=== PATIENT | female | born 1950 | race Caucasian/White ===

== ENCOUNTER 2018-01-02 00:43 | Observation (INO) | payer MEDICARE, OTHER ==
[2018-01-02] VITALS (13 sets, daily range): BP systolic 114–146; BP diastolic 62–87
[~2018-01-02] VITALS: Ht 160 cm; Wt 71.2 kg
[~2018-01-02 00:43] MED LIST: ACET500T68 PO; ACYC-50 PO; ASCO-182 PO; BIOT250012 PO; CALC-635 PO; CRAN500C11 PO; CYCL10TA29 PO; DIAZ-308 PO; ESTR42.53 VA; ESTRATEST PO; GLUC-125 PO; HYDR200T77 PO; LEVO75TA73 PO; LOSA-51 PO; NAPR220C11 PO; NAPR220C12 PO; PRED-1 PO; PREMARIN PO; PROP10TA58 PO; PYRI100T57 PO; VITA-200 PO
[2018-01-02] MEDS ORDERED: THROMBIN (BOVINE) 20,000 UNIT VIAL ONE (06:25)
[2018-01-02] MEDS ORDERED: ROCURONIUM BROM 10 MG/ML 10 ML ONE (07:37)
[2018-01-02] MEDS ORDERED: ONDANSETRON 4 MG/2 ML VIAL ONE (07:37)
[2018-01-02] MEDS ORDERED: LIDOCAINE MPF 1% 5 ML VIAL ONE (07:37)
[2018-01-02] MEDS ORDERED: DEXAMETHASONE SOD 4 MG/ML VIAL ONE (07:37)
[2018-01-02] MEDS ORDERED: SUGAMMADEX SOD 200 MG/2 ML SDV ONE (07:37)
[2018-01-02] MEDS ORDERED: PROPOFOL EMUL(*) 10MG/ML 20 ML 20 ML ONE (07:37)
[2018-01-02] MEDS ORDERED: fentaNYL CITR 100 MCG/2 ML AMP ONE ×2 (07:38→13:40)
[2018-01-02] MEDS ORDERED: HYDROmorphone HCL 2 MG/ML SDV ONE ×2 (07:39→13:12)
[2018-01-02] MEDS ORDERED: KETAMINE HCL 500 MG/10 ML VIAL ONE (07:40)
[2018-01-02] MEDS ORDERED: MIDAZOLAM 2 MG/2 ML VIAL IVP PRN (09:00)
[2018-01-02] MEDS ORDERED: PREGABALIN 150 MG CAPSULE PO ONE (09:00)
[2018-01-02] MEDS ORDERED: LIDOCAINE/SOD BICARB 8.4% SYR ID ONE (09:00)
[2018-01-02] MEDS ORDERED: ACETAMINOPHEN 500 MG TAB PO ONE (09:00)
[2018-01-02] MEDS ORDERED: ceFAZolin(*) 1 GM VIAL 1 GM in NS(*) 0.9% 100 ML ADDVANT BAG 100 ML IVPB ONE (09:00)
[2018-01-02] MEDS ORDERED: NORMOSOL R SOLN(*) 1000 ML BAG 1,000 ML IV PRN (09:00)
[2018-01-02] MEDS ORDERED: FAMOTIDINE 20 MG TAB PO ONE (09:00)
[2018-01-02] MEDS ORDERED: NS 0.9% IRRIGATION 1000ML PLCT IR ONE (12:14)
--- NOTE | 2018-01-02 13:13 | OPERATIVE REPORT 1 ---
EVENT DATE: January 02, 2018 SURGEON: Jason Watson MD ANESTHESIOLOGIST: Dani Iraheta MD ANESTHESIA: General endotracheal. LOOSE HAND PACKER: Rajendra Sebastian PA-C PREOPERATIVE DIAGNOSIS Left lumbar fifth vertebra radiculopathy and neurogenic claudication. POSTOPERATIVE DIAGNOSIS Left lumbar fifth vertebra radiculopathy and neurogenic claudication. PROCEDURE PERFORMED Lumbar fourth vertebra-lumbar fifth vertebra (L4-L5) laminectomy with lumbar fourth vertebra-lumbar fifth vertebra (L4-L5) posterior lateral instrumented fusion. IV FLUIDS 1400 mL. ESTIMATED BLOOD LOSS 120 mL. IMPLANTS USED 1. 6.5 mm x 45 mm pedicle screws from [employer] x4. 2. 40 mm connecting rods from [employer] x2. 3. Locking caps from [employer] x4. SPECIMENS None. DRAINS None. COMPLICATIONS None. DISPOSITION Post-Anesthesia Care Unit. INDICATIONS Ms. Monzon is a 67-year-old female who presented many months ago with a complaint of radiating left lower extremity pain, numbness and tingling down the posterior buttock, posterior lateral thigh and lateral aspect of the calf into the foot. She was found to have significant degenerative disk disease and degenerative spondylolisthesis at L4-L5, where she also had severe spinal stenosis and asymmetric disk height loss, left greater than right. Her physical examination was significant for normal strength and sensation throughout the lower extremities. Secondary to ongoing symptoms and failure to improve with nonsurgical care, Ms. Monzon was ultimately offered and elected to undergo L4-L5 laminectomy with an L4-L5 posterior lateral instrumented fusion to address the spondylolisthesis. Prior to surgery, I explained in detail to the patient the possible risks of surgery. These risks include bleeding, infection, damage to surrounding structures, nerve root injury, persistent and/or worsening pain, spinal fluid leak, meningitis, need for further surgery, deaf, blindness, sexual dysfunction , autonomic nervous system dysfunction and other unforeseen medical and surgical complications. An understanding that in general spinal surgery is more predicted at improving extremity discomfort than axial spine pain was stressed. DESCRIPTION OF PROCEDURE On the date of surgery, the patient was met in the preoperative hold area and all questions were answered. The operative site was identified by myself and marked. The patient was brought in good condition to the operating room and after succumbing to anesthesia was placed in the prone position on a Shane table. All bony protuberances and soft tissues were well padded in the standard fashion. Care was taken to maintain appropriate perfusion pressures during anesthesia. Preoperative antibiotics were administered according to the appropriate timing schedule. At the conclusion of the procedure, sponge and needle counts were correct x2. A final time-out was undertaken by members of the operating team to confirm correct patient, correct levels and correct surgery. The patient was then prepped and draped in the standard sterile orthopedic fashion. A vertical incision was made in the midline overlying the intended surgical levels. Sharp dissection was carried out down to the posterior elements. Soft tissues were elevated off the posterior elements in a subperiosteal manner. Lateral radiograph was obtained to confirm correct spinal levels. Soft tissues were further dissected down the laminas of L4 and L5 and then up the pars intra- articularis to the fact above and then out to the tips of the transverse processes bilaterally at L4 and L5. Self-retaining retractors were placed and thrombin soaked spongers were placed in the lateral gutters. Attention was then turned to the laminectomy. A Leksell rongeur was used to remove the spinous processes of L4. The lamina of L4 was then thinned down the midline with a combination of a high-speed bur and the Leksell rongeur. A portion of the superior aspect of the L5 spinous process was removed as well. An angled curette was used to undermine the superior insertion of the ligamentum flavum from the inferior aspect of the L4 lamina. Once we entered the canal, I used a Elmore elevator to ensure that all dural adhesions had been freed from surrounding bone and soft tissue prior to the use of the Kerrison punch. I then utilized a #3 and #4 Kerrison punch to perform a midline decompression. Bilateral lateral recess decompressions were then performed again using #3 and #4 Kerrisons. At the conclusion of the decompression, the nerve roots were mobilized and Merlin elevator was used to check the lateral recesses as well as the foramina to ensure complete decompression of all neural elements. Meticulous hemostasis was obtained using FLOSEAL and patties in the lateral recesses. We then turned our attention to the fusion portion of the procedure. The appropriate starting points for pedicle screws at L4 and L5 were identified bilaterally. A high-speed bur was used to decorticate the starting point for the pedicle screws and then a Lenke type probe was advanced against resistance through the pedicle and into the vertebral body. A ball tip feeler was used to confirm absence of bony breaching, palpating superiorly, inferiorly, medially, laterally as well as distally to ensure absence of bony breaching. 6.5 mm x 45 mm pedicle screws were selected and placed bilaterally at L4 and L5. After placement of each screw, it was tested with neurophysiologic monitoring to confirm absence of bony breaching and all screws tested well above the appropriate threshold. We then irrigated the incision with copious sterile saline solution and placed rods within the tulips of the screws. On the right side, we applied a small amount of compression across the screws prior to tightening the locking caps while on the left side we distracted to some degree again prior to tightening the locking caps. Once we were satisfied with the position of our screws and our rods, the locking caps were finally tightened using the torque limiting device. Again, the wound was irrigated with copious sterile saline solution and a high-speed bur was used to decorticate the transverse processes of L4 and L5 bilaterally. Local bone graft taken from the laminectomy was run through a bone mill and then packed in the lateral recesses overlying the transverse processes of L4 and L5 bilaterally. A lateral radiograph was obtained that confirmed excellent positioning of the instrumentation and the wound was then closed in layers using a running suture for the deep fascia, interrupted suture for the subcutaneous tissue and running subcuticular skin stitch. Sponge and needle counts were correct x2. POSTOPERATIVE CARE PLAN Ms. Monzon will remain in the hospital until she meets discharge criteria. This will include passing physical therapy, tolerating p.o. intake and having adequate pain control. She will follow up in my clinic in two weeks' time for wound check and examination. KIRILL
[2018-01-02] MEDS ORDERED: NORMOSOL R SOLN(*) 1000 ML BAG 1,000 ML IV ONE (13:23)
[2018-01-02] MEDS ORDERED: DIAZEPAM 5 MG TAB ONE (13:52)
[2018-01-02] MEDS ORDERED: DIAZEPAM 5 MG TAB PO PRN (14:50)
[2018-01-02] MEDS ORDERED: BISACODYL 10 MG SUPP PR PRN (14:50)
[2018-01-02] MEDS ORDERED: BENZOCAINE/MENTHOL 1 EACH LOZG PO PRN (14:50)
[2018-01-02] MEDS ORDERED: diphenhydrAMINE 25 MG CAP PO PRN (14:50)
[2018-01-02] MEDS ORDERED: ACETAMINOPHEN(*)1000 MG/100 ML 100 ML IVPB PRN (14:50)
[2018-01-02] MEDS ORDERED: ACETAMINOPHEN 500 MG TAB PO PRN (14:50)
[2018-01-02] MEDS ORDERED: HYDROmorphone HCL 2 MG/ML SDV IVP PRN (14:50)
[2018-01-02] MEDS ORDERED: ONDANSETRON 4 MG/2 ML VIAL IVP PRN (14:50)
[2018-01-02] MEDS ORDERED: oxyCODONE HCL 5 MG CAP PO PRN (14:50)
[2018-01-02] MEDS ORDERED: MAGNESIUM HYDROXIDE* 30ML UDCP PO PRN (14:50)
[2018-01-02] MEDS ORDERED: LR(*) 1000 ML BAG 1,000 ML IV PRN (14:50)
[2018-01-02] MEDS ORDERED: FLUSH 10 ML SYR IVP PRN (14:50)
--- NOTE | 2018-01-02 14:50 | RADIOLOGY IMAGING REPORT ---
FACILITY: [facility] [place] PATIENT NAME: Palmira Monzon : 1950 MR: [id number] V: [id number] EXAM DATE: ORDERING PHYSICIAN: TAMIKO TREVINO TECHNOLOGIST: Location: [facility] [place] Patient: Palmira Monzon : 1950 Visit/Account:[id number] Date of Sevice: 01/02/2018 Lumbar spine Indication: Disc herniation. Fusion procedure. Comparison: None available FINDINGS: 2 intraoperative crosstable lateral views are obtained in the operating room. On the first image, a surgical instrument and gauze material overlies the dorsal soft tissues at the L4 level. On the second image, there has been instrumented lumbar fusion performed at L4-L5. There is multilevel d egenerative disc disease present. There is slight anterolisthesis of L4 upon L5. IMPRESSION: 1. Intraoperative lumbar crosstable lateral images with findings as above. Report Dictated By: Rafy Galicia at 01/02/2018 2:45 PM Report E-Signed By: Rafy Galicia at 01/02/2018 2:46 PM WSN:[id number]
--- NOTE | 2018-01-02 15:24 | Hospitalist Consultation ---
History of Present Illness Requesting Physician Dr. Watson Reason for Consult Medical Management Chief Complaint s/p lumbar fusion History of Present Illness She was admitted s/p lumbar fusion. It is reported the surgery went well and without complication. History Problems: (1) Hypothyroidism Status: Chronic (2) Rheumatoid arthritis Status: Chronic (3) Tremor Status: Chronic (4) Hypertension Status: Chronic (5) Genital herpes Status: Chronic Home Meds Reported Medications Cranberry Extract (CRANBERRY) 500 Mg Capsule, 500 MG PO DAILY, CAPSULE 12/25/17 [Premarin] No Conflict Check, 0.45 MG PO QODAY 12/25/17 Estradiol (Estradiol) 0.01 % Cream.appl, 1 TRISTAN VA 2XW 12/25/17 Levothyroxine Sodium (LEVOTHYROXINE SODIUM) 75 Mcg Tablet, 75 MCG PO QDAY, TAB 12/25/17 Propranolol Hcl (PROPRANOLOL HCL) 10 Mg Tablet, 10 MG PO BID 12/25/17 Losartan/Hydrochlorothiazide (LOSARTAN-HCTZ 50-12.5 MG TAB) 1 Each Tablet, 1 EACH PO QDAY 12/25/17 Hydroxychloroquine Sulfate (PLAQUENIL) 200 Mg Tablet, 400 MG PO 12/25/17 Acyclovir (ACYCLOVIR) 400 Mg Tablet, 400 MG PO BID, TAB 12/25/17 Diazepam (DIAZEPAM) 5 Mg Tablet, 5 MG PO QHS, #5 TAB 12/25/17 [Estratest] No Conflict Check, 1.25-2.5 MG PO QODAY 12/25/17 Cyclobenzaprine Hcl (CYCLOBENZAPRINE HCL) 10 Mg Tablet, 10 MG PO HS, #9 TAB 12/25/17 Ascorbic Acid (VITAMIN C) 500 Mg Tablet, 1000 MG PO BID, TAB 12/25/17 Gluc/Young-Msm#2/C/D3/Terrance/Born (CTHYGOIAIW-XQVFAXKRIMI-DJX TAB) 1 Each Tablet, 1 EACH PO BID 12/25/17 Vitamin E Acetate (VITAMIN E) 400 Unit Capsule, 400 UNIT PO QDAY, CAPSULE 12/25/17 Pyridoxine Hcl (VITAMIN B-6) 100 Mg Tablet, 100 MG PO DAILY 12/25/17 Naproxen Sodium (NAPROXEN SODIUM) 220 Mg Capsule, 440 MG PO QHS, CAPSULE 12/25/17 Naproxen Sodium (ALEVE) 220 Mg Capsule, 220 MG PO QAM, CAPSULE 12/25/17 Acetaminophen (TYLENOL EXTRA STRENGTH) 500 Mg Tablet, 1000 MG PO BID, TAB 12/25/17 Biotin (BIOTIN) 2,500 Mcg Capsule, 62980 MCG PO DAILY, CAPSULE 12/25/17 Discontinued Reported Medications Prednisone 10 Mg Tab (PREDNISONE 10 MG TAB) 10 Mg Tablet, 5 MG PO QDAY, TAB 12/25/17 Calcium Carbonate/Vitamin D3 (CALCIUM 600 + VIT D3 TABLET) 1 Each Tablet, 600 MG PO BID 12/25/17 Allergies: Coded Allergies: nickel (Verified Allergy, Intermediate, SKIN RASH, 12/25/17) Patient History: Diabetes mellitus MOTHER BROTHER OR SISTER FH: COPD (chronic obstructive pulmonary disease) FATHER, BROTHER OR SISTER FH: [place] (myocardial infarction) MOTHER FH: arthritis BROTHER OR SISTER FH: breast cancer BROTHER OR SISTER FH: lung cancer FATHER, FHx: bilateral hip replacements MOTHER Gout BROTHER OR SISTER Hx Smoking: Yes (QUIT 16 YRS AGO, 1PPD X 20 YRS) Smoking Status: Former Smoker Caffeine Intake: Coffee Caffeine/Cups Per Day: 2 CUPS DAILY Hx Alcohol Use: No Hx Substance Use Disorder: No Social Drug Use: Never History of IV Drug Use: No Review of Systems All Systems Reviewed/Normal: Yes, Except as Noted Exam Vital Signs Vital Signs Date Time Temp Pulse Resp B/P (MAP) Pulse Ox O2 Delivery O2 Flow Rate FiO2 01/02/18 14:47 97.2 58 16 126/62 (83) 99 Nasal Cannula 2.0 General Appearance: No Acute Distress, Afebrile Neuro: No Gross deficits Cardiovascular: Regular Rate and Rhythm Respiratory: No Respiratory Distress, Clear to Auscultation Psych: Appropriate Mood & Affect Assessment and Plan Problems: (1) S/P lumbar fusion Status: Acute Assessment & Plan: Followed by Dr. Watson. (2) Hypertension Status: Chronic Assessment & Plan: She is on chronic treatment with Losartan and Hydrochlorothiazide. She was restarted on Losartan with hold parameters. We will hold Hydrochlorothiazide at this time. (3) Hypothyroidism Status: Chronic Assessment & Plan: She is on chronic treatment with Levothyroxine. (4) Tremor Status: Chronic Assessment & Plan: She is on chronic treatment with Propranolol. This has been restarted with hold parameters. (5) Genital herpes Status: Chronic Assessment & Plan: She is on chronic treatment with Acyclovir. (6) Rheumatoid arthritis Status: Chronic Assessment & Plan: She is on chronic treatment with Plaquenil. She had permission from Dr. Watson to continue this through surgery. She did stop prednisone five weeks prior to surgery. Venous Thromboembolism Antithrombotics Is Pt On Any Antithrombotics?: No Prophylaxis Tx Contraindicated Pharmacological Contraindicati: Surgical Contraindication ANDIE GREENE ACID REMOVER Jan 02, 2018 15:24
[2018-01-02] MEDS: ceFAZolin(*) 2GM/D5W 50ML 50 ML IVPB SCH (18:07)
[2018-01-02] MEDS: ACYCLOVIR 200 MG CAP PO SCH (20:25)
[2018-01-02] MEDS: DOCUSATE SODIUM 100 MG CAP PO SCH (20:25)
[2018-01-02] MEDS: APAP/HYDROCODONE 325/5 TAB PO PRN (22:29)
[2018-01-03] VITALS: BP 122/57
[2018-01-03 01:00] VITALS: BP 118/63
[2018-01-03] MEDS: ceFAZolin(*) 2GM/D5W 50ML 50 ML IVPB SCH ×2 (01:04→09:42)
[2018-01-03 02:00] VITALS: BP 123/61
[2018-01-03 03:00] VITALS: BP 112/55
[2018-01-03] MEDS: APAP/HYDROCODONE 325/5 TAB PO PRN ×2 (05:09→12:06)
[2018-01-03] MEDS ORDERED: LEVOTHYROXINE SOD 0.075 MG TAB PO SCH (06:00)
[2018-01-03 07:27] VITALS: BP 130/75
[2018-01-03] MEDS ORDERED: DOCU240C84 PO (08:16)
[2018-01-03] MEDS ORDERED: DIA5 PO (08:16)
[2018-01-03] MEDS ORDERED: LOR5/325 PO (08:17)
[2018-01-03 08:19] VITALS: Ht 160 cm; Wt 71.2 kg
--- NOTE | 2018-01-03 08:46 | RADIOLOGY IMAGING REPORT ---
FACILITY: PATIENT NAME: Palmira Monzon : 1950 MR: [id number] V: [id number] EXAM DATE: ORDERING PHYSICIAN: TAMIKO TREVINO TECHNOLOGIST: Location: [facility] Patient: Palmira Monzon : 1950 Visit/Account:[id number] Date of Sevice: 01/03/2018 Exam type: LUMBAR SPINE 2 OR 3 VIEW History: Status post lumbar fusion Comparison: 01/02/2018. Findings: Postoperative changes are noted from posterior lumbar fusion L4-5 without hardware complication. Patient has a leftward lumbar scoliosis with significant degenerative changes. AP alignment is other marrero relatively appropriate. Joint space narrowing at L1-2 is noted. Patient is osteopenic. Surrounding soft tissues are unremarkable. IMPRESSION: 1. Moderate leftward lumbar scoliosis. 2. Postoperative changes are noted from posterior lumbar fusion L4-5 without hardware competition. Report Dictated By: Malachi Mason MD at 01/03/2018 8:40 AM Report E-Signed By: Malachi Mason MD at 01/03/2018 8:42 AM WSN:[id number]
[2018-01-03] MEDS ORDERED: HYDROXYCHLOROQUINE 200 MG TAB PO SCH (09:00)
[2018-01-03] MEDS ORDERED: LOSARTAN POTASSIUM 50 MG TAB PO SCH (09:00)
[2018-01-03] MEDS ORDERED: PROPRANOLOL HCL 20 MG TAB PO SCH (09:00)
[2018-01-03] MEDS: DOCUSATE SODIUM 100 MG CAP PO SCH (09:43)
[2018-01-03] MEDS: ACYCLOVIR 200 MG CAP PO SCH (09:43)
[2018-01-03] MEDS: BACITRACIN OINT 0.9 GM PKT TP PRN ×2 (09:43→12:28)
--- NOTE | 2018-01-03 11:01 | Hospitalist Progress Note ---
Subjective Progress Notes Subjective She has no complaints this morning. She did require BiPap last night after surgery, she is now on room air with good pulse oximetry readings. Patient Complains of: Cardiovascular: No: Chest Pain Respiratory: No: Shortness of Breath Physical Exam Vital Signs Date Time Temp Pulse Resp B/P (MAP) Pulse Ox O2 Delivery O2 Flow Rate FiO2 01/03/18 07:27 98.4 65 12 130/75 (93) 98 Room Air 01/03/18 03:00 0.5 01/02/18 20:30 30.0 Intake and Output 01/04/18 00:59 Intake Total 200 ml Balance 200 ml Intake Oral 150 ml IV Total 50 ml # Voids 2 General Appearance: Alert, Awake, No Acute Distress, Afebrile Neuro: No Gross deficits Cardiovascular: Regular Rate and Rhythm Respiratory: No Respiratory Distress, Clear to Auscultation Psych: Alert & Oriented X3, Appropriate Mood & Affect Assessment and Plan Problems: (1) S/P lumbar fusion Status: Acute Assessment & Plan: Followed by Dr. Watson. (2) Hypertension Status: Chronic Assessment & Plan: She is on chronic treatment with Losartan and Hydrochlorothiazide. She was restarted on Losartan with hold parameters. We will hold Hydrochlorothiazide at this time. (3) Hypothyroidism Status: Chronic Assessment & Plan: She is on chronic treatment with Levothyroxine. (4) Tremor Status: Chronic Assessment & Plan: She is on chronic treatment with Propranolol. This has been restarted with hold parameters. (5) Genital herpes Status: Chronic Assessment & Plan: She is on chronic treatment with Acyclovir. (6) Rheumatoid arthritis Status: Chronic Assessment & Plan: She is on chronic treatment with Plaquenil. She had permission from Dr. Watson to continue this through surgery. She did stop prednisone five weeks prior to surgery. Exam Sepsis Risk: No Definite Risk ANDIE GREENE CLOTH WASHER Jan 03, 2018 11:00
== END 2018-01-03 12:35 | disposition home or self-care (01) ==
LOC: OR 00:43 → MED 14:35
PROVIDERS: ADMIT Orthopaedic Surgery; ATTEND Orthopaedic Surgery
DX: M54.16 Radiculopathy, lumbar region (principal); M48.062 Spinal stenosis, lumbar region with neurogenic claudication
CPT/HCPCS: 36415; 63047; 72020; 72100; 86850; 86900; 86901; 94660; 97161; A9270; C1713; G0378; J0690; J1100; J1170; J2001; J2405; J2704; J3010; J3490; J7050; C9399